=== PATIENT | female | born 1945 | race Caucasian/White ===

== ENCOUNTER 2019-03-19 10:51 | Emergency (ER) | payer MEDICARE, BC ==
[~2019-03-19] VITALS: Ht 172.7 cm; Wt 68.2 kg
[2019-03-19] MEDS ORDERED: ketorolac trometh. 30mg/ml inj. IV ONE (11:25)
[2019-03-19] MEDS ORDERED: ketorolac tromethamine 15mg/ml inj. IV ONE (11:25)
[2019-03-19] MEDS ORDERED: metoclopramide 5 mg/ml inj IV ONE (11:25)
[2019-03-19 12:08] LABS: BASOPHILS % (AUTO) 0.3 % (0-1); EOSINOPHILS # (AUTO) 0.1 X10'3 (0-0.9); EOSINOPHILS % (AUTO) 0.8 % (0-6); HEMATOCRIT 34.9 % (35.0-45.0); HEMOGLOBIN 11.8 g/dl (12.0-16.0); LYMPHOCYTES # (AUTO) 1.4 X10'3 (1.1-4.8); LYMPHOCYTES % (AUTO) 13.6 % (21-51); MEAN CORPUSCULAR HEMOGLOBIN 29.7 PG (27.0-31.0); MEAN CORPUSCULAR HGB CONC 33.9 g/dL (33.0-36.5); MEAN CORPUSCULAR VOLUME 87.7 FL (78-98); MEAN PLATELET VOLUME 7.9 FL (7.4-10.4); MONOCYTES % (AUTO) 9.3 % (2-12); NEUTROPHILS # (AUTO) 7.9 X10'3 (1.8-7.7); PLATELET COUNT 281 X10'3 (140-440); RED BLOOD COUNT 3.98 X10'6 (4.20-5.60); RED CELL DISTRIBUTION WIDTH 12.5 % (11.5-14.5); WHITE BLOOD COUNT 10.4 X10'3 (4.5-11.0)
[2019-03-19 12:13] LABS: ALANINE AMINOTRANSFERASE 24 U/L (12-78); ALBUMIN/GLOBULIN RATIO 0.8 (1.1-1.5); ALKALINE PHOSPHATASE 62 IU/L (46-116); ANION GAP 10 (8-16); ASPARTATE AMINO TRANSFERASE 26 U/L (10-37); BILIRUBIN,TOTAL 0.6 MG/DL (0.1-1.0); BLOOD UREA NITROGEN 17 MG/DL (7-18); BUN/CREATININE RATIO 21.8 (6.6-38.0); CHLORIDE 106 MMOL/L (99-107); CREATININE 0.78 MG/DL (0.40-0.90); GLUCOSE 115 MG/DL (70-104); SODIUM 141 MMOL/L (135-145); TOTAL CARBON DIOXIDE 25.4 MMOL/L (24-32); eGFR 72 ML/MIN
[2019-03-19] MEDS ORDERED: potassium Cl 20 mEq SR tablet PO PRN (12:50)
--- NOTE | 2019-03-19 13:07 | NUR ---
FAMILY REPORTS PT WAS SEEN AT [facility] 2 DAYS AGO AND UA CAME BACK NEGATIVE. OK PER DR CHAVARRIA TO CANCEL UA TODAY.
--- NOTE | 2019-03-19 13:35 | NUR ---
FAVIAN WITH SELENA MANAGEMENT IS AT BEDSIDE.
--- NOTE | 2019-03-19 13:37 | NUR ---
LILY WITH CASE MANGEMENT REPORT SHE IS SETTIG UP HOME PT FOR PT AT [place].
[2019-03-19 14:11] VITALS: BP 123/43
== END 2019-03-19 14:13 | disposition home or self-care (01) ==
LOC: ER 10:52
DX: F03.90 Unspecified dementia, unspecified severity, without behavioral disturbance, psychotic disturbance, mood disturbance, and anxiety (principal); M25.552 Pain in left hip; M25.562 Pain in left knee; R47.01 Aphasia; Z91.81 History of falling; Z56.0 Unemployment, unspecified; W18.39XA Other fall on same level, initial encounter; Y93.89 Activity, other specified; Y92.89 Other specified places as the place of occurrence of the external cause; Y99.8 Other external cause status
CPT/HCPCS: 36415; 72170; 80053; 85025; 96374; 96375; 99284; J1885; J2765